=== PATIENT | female | born 1995 | race Caucasian/White ===

== ENCOUNTER 2016-03-18 15:50 | Emergency (ER) | payer OTHER ==
[~2016-03-18] VITALS: Ht 170.2 cm; Wt 98.4 kg
[2016-03-18 16:01] VITALS: BP 144/78
--- NOTE | 2016-03-18 16:16 | NUR ---
PATIENT PRESENTS TO ED WITH C/O THROAT PAIN X1 MONTH, SEVERE SINCE YESTERDAY. PT STATES SHE STOPPED TAKING HER THYROID MEDICATION BECAUSE SHE RAN OUT AND HASN'T FOLLOWED UP WITH HER PMD, SHE IS UNSURE OF THE MEDICATION NAME . SHE ALSO STATES THAT SHE HAS BEEN HAVING DIARRHEA 3X PER DAY "SINCE FOREVER". SKIN IS PINK/WARM/DRY; AAOX4 WITH EVEN AND STEADY GAIT; LUNGS CLEAR BL; HR EVEN AND REGULAR; PT DENIES ANY FEVER, CP, SOB, OR COUGH AT THIS TIME; PATIENT STATES PAIN OF 8/10 AT THIS TIME; VSS; PATIENT POSITIONED FOR COMFORT; HOB ELEVATED; BEDRAILS UP X2; BED DOWN. ER MD MADE AWARE OF PT STATUS.
--- NOTE | 2016-03-18 16:20 | NUR ---
Dr. Head evaluating patient at bedside.
[2016-03-18 17:43] VITALS: BP 113/85
--- NOTE | 2016-03-18 17:45 | NUR ---
Patient discharged with v/s stable. Written and verbal after care instructions given and explained. Patient verbalized understanding. Ambulatory with steady gait. All questions addressed prior to discharge. Advised to follow up with PMD.
== END 2016-03-18 17:45 | disposition home or self-care (01) ==
LOC: MED 15:50
DX: R07.0 Pain in throat (principal); M54.2 Cervicalgia; R13.10 Dysphagia, unspecified

== ENCOUNTER 2019-10-03 17:35 | Emergency (ER) | payer OTHER ==
[~2019-10-03] VITALS: Ht 170.2 cm; Wt 104.3 kg
[2019-10-03 17:38] VITALS: BP 149/89
--- NOTE | 2019-10-03 17:55 | NUR ---
no nursing intervention done, mse completed by ene camacho
--- NOTE | 2019-10-03 18:00 | NUR ---
Patient discharged.Written and verbal after care instructions given and explained. Patient alert, oriented and verbalized understanding of instructions. Ambulatory with steady gait. All questions addressed prior to discharge. ID band removed. Patient advised to follow up with PMD. Rx of keflex, motrin, prednisone given. Patient educated on indication of medication including possible reaction and side effects. Opportunity to ask questions provided and answered. pt instructed to return if fever or vomiting develops
== END 2019-10-03 18:00 | disposition home or self-care (01) ==
LOC: MED 17:35
DX: L03.114 Cellulitis of left upper limb (principal); R21 Rash and other nonspecific skin eruption; F12.90 Cannabis use, unspecified, uncomplicated; E07.9 Disorder of thyroid, unspecified
CPT/HCPCS: 99283

== ENCOUNTER 2020-07-18 16:01 | Emergency (ER) | payer OTHER ==
[~2020-07-18] VITALS: Ht 170.2 cm; Wt 107.5 kg
[2020-07-18 16:10] VITALS: BP 123/77
--- NOTE | 2020-07-18 16:21 | NUR ---
25 Y/O FEMALE C/O ABD PAIN 10/17 DESCRIBES STABBING INTERMITTENT X 1MONTH. PT STATES SHE SELF-PRESCRIBED WITH ESOMPRAZOLE BUT SYMPTOMS WORSENED AFTER TAKING IT. PT DENIES N/V/D, DENIES FEVER/CHILLS. VSS. ABDOMEN SOFT, NONTENDER WITH NORMOACTIVE BOWEL SOUNDS. PT CHANGED TO GOWN. ERMD MADE AWARE OF PT STATUS. PMH: GERD NKA
[2020-07-18] MEDS ORDERED: DICYCLOMINE HCL LIQUID 20 MG, ALUMINUM HYD/MAG/SIMETHICONE 30 ML, LIDOCAINE VISCOUS 2% ... PO ONE ×3 (16:25)
[2020-07-18] MEDS ORDERED: ALUMINUM HYD/MAG/SIMETHICONE 30 ML UDC ONE (16:31)
[2020-07-18] MEDS ORDERED: LIDOCAINE VISCOUS 2% 20 ML UDC ONE (16:31)
[2020-07-18] MEDS ORDERED: DICYCLOMINE HCL LIQUID 10 MG/5 ML UDC ONE (16:31)
[2020-07-18] MEDS ORDERED: CIPR500T4 PO (16:52)
[2020-07-18] MEDS ORDERED: OMEP40EC24 PO (16:52)
[2020-07-18 18:27] VITALS: BP 123/77
--- NOTE | 2020-07-18 18:28 | NUR ---
Patient discharged with v/s stable. Written and verbal after care instructions given and explained. Patient alert, oriented and verbalized understanding of instructions. Ambulatory with steady gait. All questions addressed prior to discharge. ID band removed. Patient advised to follow up with PMD. Rx of CIPROFLOXACIN, OMEPRAZOLE given. Patient educated on indication of medication including possible reaction and side effects. Opportunity to ask questions provided and answered.
== END 2020-07-18 18:28 | disposition home or self-care (01) ==
LOC: MED 16:01
DX: R10.13 Epigastric pain (principal); R19.7 Diarrhea, unspecified; R11.2 Nausea with vomiting, unspecified; K21.9 Gastro-esophageal reflux disease without esophagitis; E07.9 Disorder of thyroid, unspecified; F12.10 Cannabis abuse, uncomplicated
CPT/HCPCS: 81002; 81025; 99283

== ENCOUNTER 2022-10-31 14:54 | Emergency (ER) | payer MEDICAID, OTHER ==
[~2022-10-31] VITALS: Ht 170.2 cm; Wt 108.9 kg
[~2022-10-31 14:54] MED LIST: CIPR500T4 PO; OMEP40EC24 PO
[2022-10-31 15:39] VITALS: BP 129/80; PULSE 89; RESP 18; TEMP 97.8; O2SAT 100
[2022-10-31 17:22] VITALS: O2SAT 98
[2022-10-31] MEDS ORDERED: SULF-58 PO (17:43)
[2022-10-31] MEDS ORDERED: BENC TP (17:43)
[2022-10-31 17:51] VITALS: BP 129/80; PULSE 89; RESP 18; TEMP 97.8; O2SAT 98
== END 2022-10-31 17:52 | disposition home or self-care (01) ==
LOC: MED 14:54
DX: S51.832A Puncture wound without foreign body of left forearm, initial encounter (principal); L03.114 Cellulitis of left upper limb; K21.9 Gastro-esophageal reflux disease without esophagitis; E03.9 Hypothyroidism, unspecified; W57.XXXA Bitten or stung by nonvenomous insect and other nonvenomous arthropods, initial encounter; Y93.89 Activity, other specified; Y92.89 Other specified places as the place of occurrence of the external cause; Y99.8 Other external cause status
CPT/HCPCS: 99283

== ENCOUNTER 2023-02-17 05:10 | Emergency (ER) | payer SELFPAY ==
[~2023-02-17] VITALS: Ht 167.6 cm; Wt 104.3 kg
[2023-02-17 05:10] VITALS: BP 123/78; PULSE 75; RESP 17; TEMP 97.8; O2SAT 100
[~2023-02-17 05:10] MED LIST changes: +BENC TP; +SULF-58 PO
[2023-02-17 06:40] VITALS: TEMP 97.8
[2023-02-17 06:44] VITALS: BP 110/74; PULSE 54; RESP 15; O2SAT 99
== END 2023-02-17 06:40 | disposition home or self-care (01) ==
LOC: MED 05:10
DX: R07.89 Other chest pain (principal); R09.1 Pleurisy; K21.9 Gastro-esophageal reflux disease without esophagitis; Z86.39 Personal history of other endocrine, nutritional and metabolic disease; Z79.899 Other long term (current) drug therapy; Z79.2 Long term (current) use of antibiotics
CPT/HCPCS: 93005; 99283